=== PATIENT | female | born 1970 | race Caucasian/White ===

== ENCOUNTER 2022-03-20 18:37 | Emergency (ER) | payer OTHER ==
[~2022-03-20] VITALS: Ht 165.1 cm; Wt 88.5 kg
[2022-03-20 19:17] VITALS: BP_SYST 141
[2022-03-20] MEDS ORDERED: HYDROcodone/ACETAMIN 5-325 MG TAB (NORCO/ VICODIN) PO ONE (21:15)
--- NOTE | 2022-03-20 21:18 | NUR ---
Patient to ER URBINA 1. Side rails up. ASSUME CARE OF BY LISBETH REA
--- NOTE | 2022-03-20 21:20 | NUR ---
ER at bedside examining patient.
--- NOTE | 2022-03-20 21:30 | NUR ---
PT C/O RIGHT ARM PAIN AFTER S/P FALL AT WORK. NO LOC, PT AMBULATED TO URBINA 1, A/O X4. NO OTHER DISCOMFORT OR PAIN AT PRESENT TIME.
[2022-03-20] MEDS ORDERED: HYDR-3917 PO (22:02)
--- NOTE | 2022-03-20 22:30 | NUR ---
POSTERIOR LONG ARM splint applied to RIGHT ARM. POSITIVE pulse noted. Capillary refill <3 seconds. Patient has ability to move non-splinted digits. Has sensation present to affected site. Skin color within normal limits. Applied for pain management control.
[2022-03-20 22:45] VITALS: BP_SYST 133
--- NOTE | 2022-03-20 22:45 | NUR ---
Patient given written and verbal discharge instructions and verbalizes understanding. ER MD discussed with patient the results and treatment provided. Patient in stable condition. ID arm band removed. Rx of NORCO given. Patient educated on pain management and to follow up with PMD. Pain Scale 3. Opportunity for questions provided and answered. Medication side effect fact sheet provided. [employer]PONSIBLE [employer]CHITECT HAY BUCKLER PT.
== END 2022-03-20 22:45 | disposition home or self-care (01) ==
LOC: SED 18:37
DX: S52.121A Displaced fracture of head of right radius, initial encounter for closed fracture (principal); S80.01XA Contusion of right knee, initial encounter; S60.211A Contusion of right wrist, initial encounter; S20.222A Contusion of left back wall of thorax, initial encounter; Z79.899 Other long term (current) drug therapy; W01.0XXA Fall on same level from slipping, tripping and stumbling without subsequent striking against object, initial encounter; Y93.89 Activity, other specified; Y92.89 Other specified places as the place of occurrence of the external cause; Y99.8 Other external cause status
CPT/HCPCS: 71046-TC; 73564; 99284

== ENCOUNTER 2024-04-29 08:50 | Day surgery (SDC) | payer OTHER ==
[~2024-04-29] VITALS: Ht 165.1 cm; Wt 86.2 kg
[~2024-04-29 08:50] MED LIST: HYDR-3917 PO
[2024-04-29] MEDS ORDERED: MIDAZOLAM HCL 5 MG/5 ML VIAL ONE (10:02)
[2024-04-29] MEDS ORDERED: MEPERIDINE 100 MG INJ. 100 MG/ML VIAL ONE (10:02)
[2024-04-29 12:07] VITALS: O2SAT 99
[2024-04-29 16:17] VITALS: TEMP 97.1
[2024-04-29 16:49] VITALS: BP_SYST 112; PULSE 87; RESP 20
== END 2024-04-29 13:35 | disposition home or self-care (01) ==
LOC: SDS 08:50 → SMU 08:52 → SDS 13:35
PROVIDERS: ATTEND Student in an Organized Health Care Education/Training Program
DX: K52.9 Noninfective gastroenteritis and colitis, unspecified (principal); K64.4 Residual hemorrhoidal skin tags; K64.8 Other hemorrhoids; I10 Essential (primary) hypertension; K21.9 Gastro-esophageal reflux disease without esophagitis; Z90.89 Acquired absence of other organs; Z79.899 Other long term (current) drug therapy; Z88.8 Allergy status to other drugs, medicaments and biological substances
CPT/HCPCS: 45380; 88305; J2175; J2250